=== PATIENT | male | born 1965 | race Caucasian/White ===

== ENCOUNTER 2018-07-26 09:32 | Emergency (ER) | payer MEDICAID ==
[~2018-07-26] VITALS: Ht 165.1 cm; Wt 106.0 kg
[~2018-07-26 09:32] MED LIST: ALLO100T PO; AMLO5TAB4 PO; ASPI-1159 PO; CITA20TA19 PO; FLUO20CA33 PO; METO-539 PO; QUET100T PO
[2018-07-26] MEDS ORDERED: KETOROLAC 60MG/2ML VIAL IM ONE (10:30)
[2018-07-26 10:55] VITALS: BP 149/105
== END 2018-07-26 11:00 | disposition home or self-care (01) ==
LOC: ER 09:32
DX: M10.9 Gout, unspecified (principal); I11.0 Hypertensive heart disease with heart failure; I50.9 Heart failure, unspecified; I48.91 Unspecified atrial fibrillation; F17.200 Nicotine dependence, unspecified, uncomplicated; Z79.82 Long term (current) use of aspirin; Z90.49 Acquired absence of other specified parts of digestive tract; Z79.01 Long term (current) use of anticoagulants
CPT/HCPCS: 96372; 99283; J1885

== ENCOUNTER 2018-12-01 11:48 | Emergency (ER) | payer MEDICAID ==
[~2018-12-01] VITALS: Ht 170.2 cm; Wt 109.0 kg
[2018-12-01 12:14] VITALS: BP 137/110
== END 2018-12-01 13:24 | disposition home or self-care (01) ==
LOC: ER 11:48
DX: M10.9 Gout, unspecified (principal); I48.91 Unspecified atrial fibrillation; I11.0 Hypertensive heart disease with heart failure; I50.9 Heart failure, unspecified; Z79.82 Long term (current) use of aspirin; Z98.890 Other specified postprocedural states
CPT/HCPCS: 99283

== ENCOUNTER 2019-01-09 04:28 | Emergency (ER) | payer MEDICAID ==
[~2019-01-09] VITALS: Ht 170.2 cm; Wt 114.0 kg
[2019-01-09] MEDS ORDERED: NITROGLYCERIN 0.4MG TABLET SL SL PRN (06:45)
[2019-01-09] MEDS ORDERED: ASPIRIN 81MG TABLET PO ONE (06:45)
[2019-01-09 07:13] LABS: BASOPHILS % 0.9 % (0.0-2.0); EOSINOPHILS % 1.8 % (0.0-5.0); HEMATOCRIT. 39.3 % (42.0-52.0); HEMOGLOBIN. 12.9 g/dL (14.0-18.0); LYMPHOCYTES % 21.4 % (20.0-50.0); MEAN CORPUSCULAR HEMOGLOBIN 30.5 pg (28.0-32.0); MEAN CORPUSCULAR VOLUME 93.1 fL (80.0-94.0); MEAN PLATELET VOLUME 8.3 fl (7.4-10.4); NEUTROPHILS % 67.9 % (40.0-76.0); PLATELET 147 x1000/uL (130-400); RED BLOOD CELL COUNT 4.22 mill/uL (4.7-6.1); RED CELL DISTRIBUTION WIDTH 16.4 % (11.6-14.6)
[2019-01-09 07:17] LABS: CHLORIDE 112 mEq/L (98-107)
[2019-01-09] MEDS ORDERED: FUROSEMIDE 40MG/4ML VIAL IV ONE (08:00)
[2019-01-09 09:52] VITALS: BP 152/97
== END 2019-01-09 09:52 | disposition left against medical advice (07) ==
LOC: ER 05:53 → CANBEDREQ 11:23
DX: I50.33 Acute on chronic diastolic (congestive) heart failure (principal); I20.0 Unstable angina
CPT/HCPCS: 36415; 71045; 80053; 83880; 84484; 85025; 93005; 96374; 99284; J1940

== ENCOUNTER 2019-03-17 12:10 | Emergency (ER) | payer MEDICAID ==
[~2019-03-17] VITALS: Ht 170.2 cm; Wt 125.0 kg
[~2019-03-17 12:10] MED LIST changes: -ASPI-1159 PO; +ASPI-1393 PO
[2019-03-17 16:00] VITALS: BP 131/91
== END 2019-03-17 16:00 | disposition home or self-care (01) ==
LOC: ER 12:10
DX: M10.9 Gout, unspecified (principal); I48.91 Unspecified atrial fibrillation; I50.9 Heart failure, unspecified; R06.2 Wheezing; Z79.82 Long term (current) use of aspirin; Z79.899 Other long term (current) drug therapy
CPT/HCPCS: 99283

== ENCOUNTER 2019-05-31 09:41 | Emergency (ER) | payer MEDICAID ==
[~2019-05-31] VITALS: Ht 170.2 cm; Wt 108.0 kg
[2019-05-31 11:18] VITALS: BP 140/99
== END 2019-05-31 11:19 | disposition home or self-care (01) ==
LOC: ER 09:41
DX: M10.9 Gout, unspecified (principal); M25.571 Pain in right ankle and joints of right foot; I11.0 Hypertensive heart disease with heart failure; I50.9 Heart failure, unspecified; I48.91 Unspecified atrial fibrillation; Z79.899 Other long term (current) drug therapy; Z98.890 Other specified postprocedural states
CPT/HCPCS: 99283

== ENCOUNTER 2019-07-28 00:21 | Inpatient (IN) | payer MEDICAID ==
[~2019-07-28] VITALS: Ht 170.2 cm; Wt 112.9 kg
[2019-07-28] MEDS ORDERED: IPRATROPIUM BROMIDE (0.02%) 0.5MG/2.5ML NEB HHN STA (00:45)
[2019-07-28] MEDS ORDERED: MAGNESIUM 2 G PREMIX 50 ML IV ONE (00:45)
[2019-07-28] MEDS ORDERED: METHYLPREDNISOLONE SOD SUCC 125 MG/2 ML VIAL IV STA (00:45)
[2019-07-28] MEDS ORDERED: FUROSEMIDE 40MG/4ML VIAL IV ONE (00:45)
[2019-07-28 01:35] LABS: CHLORIDE 108 mEq/L (98-107)
[2019-07-28] MEDS ORDERED: IPRATROPIUM/ALBUTEROL 0.5-3(2.5)MG/3ML NEB ONE ×2 (02:32→03:48)
[2019-07-28] MEDS: ALBUTEROL (0.083%) 2.5MG/3ML NEB HHN SCH ×3 (02:35→03:35)
[2019-07-28 02:50] LABS: BASOPHILS % 0.5 % (0.0-2.0); EOSINOPHILS % 1.4 % (0.0-5.0); HEMATOCRIT. 51.9 % (42.0-52.0); HEMOGLOBIN. 17.4 g/dL (14.0-18.0); MEAN CORPUSCULAR HEMOGLOBIN 31.7 pg (28.0-32.0); MEAN CORPUSCULAR VOLUME 94.7 fL (80.0-94.0); MEAN PLATELET VOLUME 9.5 fl (7.4-10.4); MONOCYTES % 6.9 % (2.0-8.0); NEUTROPHILS % 77.2 % (40.0-76.0); PLATELET 252 x1000/uL (130-400); RED BLOOD CELL COUNT 5.48 mill/uL (4.7-6.1); RED CELL DISTRIBUTION WIDTH 14.8 % (11.6-14.6)
[2019-07-28] MEDS ORDERED: LEVOFLOXACIN 750MG PREMIX 150 ML IV SCH (03:30)
[2019-07-28] MEDS ORDERED: PIPERACILLIN/TAZOBACTAM 3.375GM/50ML PREMIX IV SCH (05:15)
[2019-07-28] MEDS ORDERED: VANCOMYCIN 1 G PREMIX 200 ML IV SCH (05:15)
[2019-07-28] MEDS ORDERED: DIPHENHYDRAMINE 50MG/ML VIAL IV ONE (05:15)
[2019-07-28] MEDS ORDERED: BUSPIRONE HCL 5MG TABLET PO PRN (12:15)
[2019-07-28 13:00] VITALS: BP 168/93
[2019-07-28 13:21] VITALS: BP 143/87
[2019-07-28] MEDS: METHYLPREDNISOLONE SOD SUCC 40 MG/ML VIAL IV SCH ×2 (13:41→21:12)
[2019-07-28] MEDS: QUETIAPINE FUMARATE 50MG TABLET PO SCH ×2 (13:48→21:14)
[2019-07-28] MEDS: ASPIRIN 81MG TABLET PO SCH (13:49)
[2019-07-28] MEDS: FUROSEMIDE 40MG TABLET PO SCH (14:10)
[2019-07-28 16:00] VITALS: BP 134/74
[2019-07-28] MEDS ORDERED: IPRATROPIUM BROMIDE (0.02%) 0.5MG/2.5ML NEB HHN SCH (16:00)
[2019-07-28] MEDS: RIVAROXABAN 20 MG TABLET PO SCH (17:13)
[2019-07-28] MEDS ORDERED: IPRATROPIUM/ALBUTEROL 0.5-3(2.5)MG/3ML NEB HHN PRN (19:30)
[2019-07-28 20:00] VITALS: BP 121/82
[2019-07-28] MEDS: IPRATROPIUM/ALBUTEROL 0.5-3(2.5)MG/3ML NEB HHN SCH (21:45)
[2019-07-29] VITALS (7 sets, daily range): BP systolic 125–145; BP diastolic 70–100
[2019-07-29] MEDS: METHYLPREDNISOLONE SOD SUCC 40 MG/ML VIAL IV SCH ×2 (06:53→13:31)
[2019-07-29 07:28] LABS: HEMATOCRIT. 48.8 % (42.0-52.0); HEMOGLOBIN. 16.7 g/dL (14.0-18.0); MEAN CORPUSCULAR VOLUME 93.3 fL (80.0-94.0); MEAN PLATELET VOLUME 8.6 fl (7.4-10.4); PLATELET 213 x1000/uL (130-400); RED BLOOD CELL COUNT 5.23 mill/uL (4.7-6.1); RED CELL DISTRIBUTION WIDTH 14.8 % (11.6-14.6)
[2019-07-29] MEDS: IPRATROPIUM/ALBUTEROL 0.5-3(2.5)MG/3ML NEB HHN SCH ×3 (08:10→21:55)
[2019-07-29] MEDS: ASPIRIN 81MG TABLET PO SCH (08:55)
[2019-07-29] MEDS: QUETIAPINE FUMARATE 50MG TABLET PO SCH ×2 (08:55→22:07)
[2019-07-29] MEDS: FUROSEMIDE 40MG TABLET PO SCH (08:55)
[2019-07-29 09:26] LABS: PLATELET ESTIMATE NORMAL
[2019-07-29 09:35] LABS: CHLORIDE 109 mEq/L (98-107)
[2019-07-29] MEDS ORDERED: GUAIFENESIN-DM 200MG-20MG/10ML UDC PO PRN (11:45)
[2019-07-29] MEDS: RIVAROXABAN 20 MG TABLET PO SCH (19:01)
[2019-07-29] MEDS: METOPROLOL TARTRATE 25MG TABLET PO SCH ×2 (19:02→22:06)
[2019-07-29] MEDS: PREDNISONE 20MG TABLET PO SCH (19:03)
[2019-07-29] MEDS ORDERED: ATORVASTATIN CALCIUM 40MG TABLET PO SCH (21:00)
[2019-07-29] MEDS: GUAIFENESIN 600MG ER TABLET PO SCH (22:07)
[2019-07-30] VITALS: BP 141/70
[2019-07-30 04:00] VITALS: BP 139/66
[2019-07-30 08:00] VITALS: BP 126/82
[2019-07-30] MEDS: IPRATROPIUM/ALBUTEROL 0.5-3(2.5)MG/3ML NEB HHN SCH ×2 (08:22→14:33)
[2019-07-30] MEDS: GUAIFENESIN 600MG ER TABLET PO SCH (09:00)
[2019-07-30] MEDS: ASPIRIN 81MG TABLET PO SCH (09:43)
[2019-07-30] MEDS: FUROSEMIDE 40MG TABLET PO SCH (09:43)
[2019-07-30] MEDS: QUETIAPINE FUMARATE 50MG TABLET PO SCH (09:43)
[2019-07-30] MEDS: PREDNISONE 20MG TABLET PO SCH (09:43)
[2019-07-30] MEDS: METOPROLOL TARTRATE 25MG TABLET PO SCH (09:48)
[2019-07-30 12:00] VITALS: BP 145/88
[2019-07-30] MEDS ORDERED: INDOMETHACIN 25MG CAPSULE PO SCH (14:45)
[2019-07-30 15:31] VITALS: BP 129/60
[2019-07-30 16:07] LABS: CLARITY URINE CLEAR (CLEAR); COLOR URINE YELLOW (YELLOW); KETONES URINE NEGATIVE (NEGATIVE); LEUKOCYTE ESTERASE URINE NEGATIVE (NEGATIVE); NITRITE URINE NEGATIVE (NEGATIVE); OCCULT BLOOD URINE NEGATIVE (NEGATIVE); PROTEIN URINE 1+ (NEGATIVE); SPECIFIC GRAVITY URINE 1.012 (1.005-1.030); UROBILINOGEN URINE 0.2 E.U./dL (0.2-1.0)
[2019-07-30 16:22] LABS: *AMPHETAMINES SCREEN URINE NEGATIVE (NEGATIVE); CANNABINOID URINE SCREEN PRESUMTIVE POSITIVE (NEGATIVE); OPIATES URINE SCREEN NEGATIVE (NEGATIVE); PHENCYCLIDINE URINE SCREEN NEGATIVE (NEGATIVE)
[2019-07-30 16:23] LABS: *BARBITURATES SCREEN URINE NEGATIVE (NEGATIVE); *BENZODIAZEPINES SCREEN URINE NEGATIVE (NEGATIVE); *COCAINE SCREEN URINE NEGATIVE (NEGATIVE); METHADONE URINE SCREEN NEGATIVE (NEGATIVE)
[2019-08-01 17:06] LABS: ANA IFA Negative (.)
[2019-08-02 13:06] LABS: ANTI-MYELOPEROXIDASE AB < 9.0 U/mL (0.0-9.0); ANTI-PROTEINASE 3 ABS < 3.5 U/mL (0.0-3.5)
[2019-08-02 15:09] LABS: ATYPICAL P-ANCA <1:20 titer (Neg:<1:20); CYTOPLASMIC C-ANCA <1:20 titer (Neg:<1:20); PERINUCLEAR P-ANCA <1:20 titer (Neg:<1:20)
== END 2019-07-30 16:07 | disposition home or self-care (01) | DRG 133 ==
LOC: ER 00:21 → 7WST 03:28 → EDBEDREQ 03:35 → EDBEDREQTM 03:35 → EDBEDREQ 08:56 → ENRESERV 10:40
PROVIDERS: ADMIT Internal Medicine; ATTEND Internal Medicine
DX: J96.00 Acute respiratory failure, unspecified whether with hypoxia or hypercapnia (principal); I50.43 Acute on chronic combined systolic (congestive) and diastolic (congestive) heart failure; I42.9 Cardiomyopathy, unspecified; E87.8 Other disorders of electrolyte and fluid balance, not elsewhere classified; E66.9 Obesity, unspecified; I48.0 Paroxysmal atrial fibrillation; I11.0 Hypertensive heart disease with heart failure; E78.5 Hyperlipidemia, unspecified; F17.200 Nicotine dependence, unspecified, uncomplicated; F41.9 Anxiety disorder, unspecified; G89.4 Chronic pain syndrome; J44.1 Chronic obstructive pulmonary disease with (acute) exacerbation; M10.9 Gout, unspecified; I50.82 Biventricular heart failure; Z79.01 Long term (current) use of anticoagulants; F31.9 Bipolar disorder, unspecified; Z68.39 Body mass index [BMI] 39.0-39.9, adult
CPT/HCPCS: 36415; 71045; 80048; 80061; 80305; 81003; 83036; 83520; 83880; 84145; 84443; 84484; 84550; 86140; 86256; 93005; 93306; 94640; 96365; 99285; J1200; J1940; J1956; J2543; J2920; J2930; J3370; J3475; J7512; J7620

== ENCOUNTER 2019-10-10 13:21 | Emergency (ER) | payer MEDICAID ==
[~2019-10-10] VITALS: Ht 170.2 cm; Wt 113.0 kg
[~2019-10-10 13:21] MED LIST changes: -ASPI-1393 PO; +ASPI-1497 PO
[2019-10-10] MEDS ORDERED: HYDROCODONE/ACETAMINOPHEN 5/325MG TABLET PO ONE (16:15)
[2019-10-10] MEDS ORDERED: KETOROLAC 60MG/2ML VIAL IM ONE (16:15)
[2019-10-10 16:34] VITALS: BP 162/116
== END 2019-10-10 16:39 | disposition home or self-care (01) ==
LOC: ER 13:21
DX: M10.9 Gout, unspecified (principal); I11.0 Hypertensive heart disease with heart failure; I50.9 Heart failure, unspecified; I48.91 Unspecified atrial fibrillation; Z79.01 Long term (current) use of anticoagulants
CPT/HCPCS: 96372; 99283; J1885

== ENCOUNTER 2019-11-03 13:40 | Emergency (ER) | payer MEDICAID ==
[~2019-11-03] VITALS: Ht 170.2 cm; Wt 125.0 kg
[2019-11-03 13:53] VITALS: BP 145/90
[2019-11-03] MEDS ORDERED: IBUPROFEN 600MG TABLET PO ONE (15:15)
== END 2019-11-03 15:27 | disposition home or self-care (01) ==
LOC: ER 13:40
DX: M10.9 Gout, unspecified (principal); Z76.0 Encounter for issue of repeat prescription; I48.91 Unspecified atrial fibrillation; I50.9 Heart failure, unspecified; Z79.82 Long term (current) use of aspirin
CPT/HCPCS: 99283

== ENCOUNTER 2020-01-30 11:49 | Inpatient (IN) | payer MEDICARE, MEDICAID ==
[2020-01-30] VITALS (33 sets, daily range): BP systolic 91–167; BP diastolic 54–129
[~2020-01-30] VITALS: Ht 165.1 cm; Wt 122.5 kg
[2020-01-30] MEDS ORDERED: SODIUM CHLORIDE 0.9% 1,000 ML IV ONE (11:59)
[2020-01-30] MEDS ORDERED: LEVETIRACETAM 1000MG/100ML 100 ML IV ONE (12:15)
[2020-01-30] MEDS ORDERED: SODIUM CHLORIDE 3% 250 ML IV SCH (12:30)
[2020-01-30] MEDS ORDERED: IOHEXOL-350 100 ML BOTTLE ONE (12:42)
[2020-01-30 12:54] LABS: BASOPHILS % 0.5 % (0.0-2.0); EOSINOPHILS % 0.2 % (0.0-5.0); HEMATOCRIT. 51.4 % (42.0-52.0); HEMOGLOBIN. 17.3 g/dL (14.0-18.0); LYMPHOCYTES % 7.3 % (20.0-50.0); MEAN CORPUSCULAR HEMOGLOBIN 31.3 pg (28.0-32.0); MEAN CORPUSCULAR VOLUME 93.3 fL (80.0-94.0); MEAN PLATELET VOLUME 8.5 fl (7.4-10.4); MONOCYTES % 9.3 % (2.0-8.0); NEUTROPHILS % 82.7 % (40.0-76.0); PLATELET 212 x1000/uL (130-400); RED BLOOD CELL COUNT 5.52 mill/uL (4.7-6.1); RED CELL DISTRIBUTION WIDTH 16.3 % (11.6-14.6)
[2020-01-30 12:59] LABS: CHLORIDE 110 mEq/L (98-107); INR 1.2
[2020-01-30] MEDS ORDERED: MANNITOL 12.5G (25%) VIAL 50ML IV ONE (13:00)
[2020-01-30] MEDS ORDERED: DEXAMETHASONE 10 MG/ML VIAL IV ONE (13:00)
[2020-01-30 13:03] LABS: ETHANOL BLOOD < 10 mg/dL
[2020-01-30 13:06] LABS: LDL CHOLESTEROL 199 mg/dL (5-100)
[2020-01-30] MEDS ORDERED: NORMAL SALINE 0.9% 10 ML SYR ONE (13:16)
[2020-01-30] MEDS ORDERED: LIDOCAINE HCL/EPINEPHRINE 1%-EPI 1:100,000 20 ML VIAL ONE ×2 (13:16→14:34)
[2020-01-30] MEDS ORDERED: BACITRACIN 15GM TUBE TOP ONE (13:16)
[2020-01-30] MEDS ORDERED: BACITRACIN 50,000 UNITS/VIAL ONE (13:16)
[2020-01-30] MEDS ORDERED: THROMBIN (BOVINE) 5000 UNITS/VIAL TOP ONE (13:16)
[2020-01-30 13:17] LABS: CLARITY URINE CLEAR (CLEAR); COLOR URINE DARK YELLOW (YELLOW); KETONES URINE 1+ (NEGATIVE); LEUKOCYTE ESTERASE URINE NEGATIVE (NEGATIVE); NITRITE URINE NEGATIVE (NEGATIVE); OCCULT BLOOD URINE 3+ (NEGATIVE); PROTEIN URINE 4+ (NEGATIVE); SPECIFIC GRAVITY URINE 1.058 (1.005-1.030)
[2020-01-30 13:18] LABS: CREATINE KINASE 1466 IU/L (39-308)
[2020-01-30] MEDS ORDERED: FENTANYL CITRATE/PF 50MCG/ML 2ML VIAL ONE (13:27)
[2020-01-30] MEDS ORDERED: PROPOFOL 200MG/20ML VIAL IV ONE (13:27)
[2020-01-30] MEDS ORDERED: MIDAZOLAM HCL 2 MG/2 ML VIAL ONE (13:27)
[2020-01-30] MEDS ORDERED: ROCURONIUM BROMIDE 10MG/ML VIAL 5ML IV ONE ×2 (13:27→14:42)
[2020-01-30] MEDS ORDERED: CEFAZOLIN SODIUM 1000MG/VIAL ONE (13:28)
[2020-01-30] MEDS ORDERED: LIDOCAINE HCL/PF 1% 10 MG/ML 5ML VIAL ONE (13:28)
[2020-01-30] MEDS ORDERED: DILTIAZEM HCL 5MG/ML 5ML VIAL IV ONE (13:30)
[2020-01-30] MEDS ORDERED: SODIUM CHLORIDE 0.9% 10ML VIAL ONE (13:35)
[2020-01-30] MEDS ORDERED: MORPHINE SULFATE 2 MG/ML CPJ (NOT FOR IM USE) IV PRN (13:45)
[2020-01-30 13:48] LABS: *AMPHETAMINES SCREEN URINE NEGATIVE (NEGATIVE); *BARBITURATES SCREEN URINE NEGATIVE (NEGATIVE); *BENZODIAZEPINES SCREEN URINE NEGATIVE (NEGATIVE); *COCAINE SCREEN URINE NEGATIVE (NEGATIVE); CANNABINOID URINE SCREEN PRESUMTIVE POSITIVE (NEGATIVE)
[2020-01-30 13:49] LABS: METHADONE URINE SCREEN NEGATIVE (NEGATIVE); OPIATES URINE SCREEN NEGATIVE (NEGATIVE); PHENCYCLIDINE URINE SCREEN NEGATIVE (NEGATIVE)
[2020-01-30] MEDS: LABETALOL 5MG/ML SYR 20 MG/4 ML SYRINGE IV SCH ×2 (16:24→16:41)
[2020-01-30] MEDS: DEXT 5%/LACTATED RINGERS 1,000 ML IV SCH (16:51)
[2020-01-30] MEDS ORDERED: LEVETIRACETAM 500MG PREMIX 100 ML IV SCH (17:00)
[2020-01-30] MEDS ORDERED: DILTIAZEM HCL 5MG/ML 5ML VIAL IV NR (17:15)
[2020-01-30] MEDS: PROPOFOL 10MG/ML 100ML 100 ML IV PRN ×2 (17:29→21:01)
[2020-01-30] MEDS: NICARDIPINE 100 MG in SODIUM CHLORIDE 0.9% 60 ML IV PRN (17:34)
[2020-01-30] MEDS: DEXAMETHASONE 4MG/ML 1ML VIAL IV SCH (17:49)
[2020-01-30] MEDS ORDERED: CEFAZOLIN 1000MG PREMIX 50 ML IV SCH (18:00)
[2020-01-30] MEDS ORDERED: LABETALOL HCL 20MG/4ML CARPUJECT IV SCH (18:00)
[2020-01-30 18:52] LABS: BG BASE EXCESS -5.3 mmol/L (-2.0-2.0); BG CARBOXYHEMOGLOBIN 0.6 % (0.5-1.5); BG DEOXYHEMOGLOBIN 0.8 % (0.0-5.0); BG FRACTION INSPIRED OXYGEN 100; BG HCO3 ACT 20.6 mmol/L (22.0-26.0); BG METHEMOGLOBIN 0.5 % (0.0-1.5); BG OXYGEN SATURATION 99.2 % (92.0-98.5); BG OXYHEMOGLOBIN 98.1 % (94.0-97.0); BG PCO2 41.3 mmHg (35.0-45.0); BG PH 7.315 (7.350-7.450); BG PO2 189.8 mmHg (75.0-100.0); BG SAMPLE SITE RIGHT RADIAL; BG TIDAL VOLUME(mL) 500 mL; BG TOTAL HEMOGLOBIN 16.4 g/dL (12.0-18.0); BG VENT MODE VENT - A/C; BG VENT RATE 14 set
[2020-01-30] MEDS: LEVETIRACETAM 500MG PREMIX 100 ML IV SCH (20:55)
[2020-01-30] MEDS: CEFAZOLIN 1000MG PREMIX 50 ML IV SCH (21:55)
[2020-01-31] VITALS (95 sets, daily range): BP systolic 103–155; BP diastolic 53–105
[2020-01-31] MEDS: DEXAMETHASONE 4MG/ML 1ML VIAL IV SCH ×5 (00:39→23:19)
[2020-01-31] MEDS: PROPOFOL 10MG/ML 100ML 100 ML IV PRN ×6 (01:02→20:11)
[2020-01-31] MEDS: CEFAZOLIN 1000MG PREMIX 50 ML IV SCH ×3 (06:37→21:17)
[2020-01-31] MEDS: PANTOPRAZOLE SODIUM 40 MG/VIAL IV SCH (09:08)
[2020-01-31] MEDS: LEVETIRACETAM 500MG PREMIX 100 ML IV SCH ×2 (09:10→20:06)
[2020-01-31 11:27] LABS: BG BASE EXCESS 1.1 mmol/L (-2.0-2.0); BG CARBOXYHEMOGLOBIN 0.5 % (0.5-1.5); BG DEOXYHEMOGLOBIN 2.4 % (0.0-5.0); BG FRACTION INSPIRED OXYGEN 65; BG HCO3 ACT 26.3 mmol/L (22.0-26.0); BG METHEMOGLOBIN 0.4 % (0.0-1.5); BG OXYGEN SATURATION 97.6 % (92.0-98.5); BG OXYHEMOGLOBIN 96.7 % (94.0-97.0); BG PCO2 43.9 mmHg (35.0-45.0); BG PH 7.396 (7.350-7.450); BG PO2 97.6 mmHg (75.0-100.0); BG SAMPLE SITE RIGHT RADIAL; BG TIDAL VOLUME(mL) 500 mL; BG VENT MODE VENT - A/C; BG VENT RATE 18 set
[2020-01-31] MEDS: MORPHINE SULFATE 4 MG/ML CPJ (NOT FOR IM USE) IV PRN ×2 (12:04→15:47)
[2020-01-31] MEDS: DILTIAZEM HCL 125 MG in DEXT 5% WATER 100 ML IV PRN ×2 (12:08→23:25)
[2020-01-31] MEDS: DEXT 5%/LACTATED RINGERS 1,000 ML IV SCH (12:09)
[2020-01-31 12:39] LABS: HEMOGLOBIN. 15.7 g/dL (14.0-18.0); MEAN CORPUSCULAR HEMOGLOBIN 30.8 pg (28.0-32.0); MEAN CORPUSCULAR VOLUME 94.2 fL (80.0-94.0); MEAN PLATELET VOLUME 8.3 fl (7.4-10.4); PLATELET 176 x1000/uL (130-400); RED CELL DISTRIBUTION WIDTH 16.4 % (11.6-14.6)
[2020-01-31 13:15] LABS: CHLORIDE 116 mEq/L (98-107)
[2020-01-31 13:27] LABS: PLATELET ESTIMATE NORMAL
[2020-01-31] MEDS ORDERED: HYDRALAZINE 20MG/ML VIAL IV PRN (15:45)
[2020-01-31] MEDS ORDERED: ACETAMINOPHEN 650MG SUPP PR PRN (15:45)
[2020-02-01] VITALS (98 sets, daily range): BP systolic 92–173; BP diastolic 41–114
[2020-02-01] MEDS: PROPOFOL 10MG/ML 100ML 100 ML IV PRN ×5 (00:29→19:11)
[2020-02-01] MEDS: CEFAZOLIN 1000MG PREMIX 50 ML IV SCH (05:23)
[2020-02-01] MEDS: DEXAMETHASONE 4MG/ML 1ML VIAL IV SCH ×3 (05:23→17:04)
[2020-02-01 07:33] LABS: HEMATOCRIT. 44.2 % (42.0-52.0); HEMOGLOBIN. 14.9 g/dL (14.0-18.0); MEAN CORPUSCULAR HEMOGLOBIN 31.6 pg (28.0-32.0); MEAN CORPUSCULAR VOLUME 93.6 fL (80.0-94.0); MEAN PLATELET VOLUME 8.9 fl (7.4-10.4); PLATELET 148 x1000/uL (130-400); RED BLOOD CELL COUNT 4.72 mill/uL (4.7-6.1)
[2020-02-01 07:39] LABS: CHLORIDE 116 mEq/L (98-107)
[2020-02-01 08:50] LABS: ATYPICAL LYMPHOCYTES 1; PLATELET ESTIMATE NORMAL
[2020-02-01] MEDS: LEVETIRACETAM 500MG PREMIX 100 ML IV SCH ×2 (08:50→21:14)
[2020-02-01] MEDS: PANTOPRAZOLE SODIUM 40 MG/VIAL IV SCH (08:50)
[2020-02-01] MEDS: MORPHINE SULFATE 4 MG/ML CPJ (NOT FOR IM USE) IV PRN (08:52)
[2020-02-01 09:07] LABS: BG BASE EXCESS 1.9 mmol/L (-2.0-2.0); BG CARBOXYHEMOGLOBIN 0.3 % (0.5-1.5); BG DEOXYHEMOGLOBIN 3.3 % (0.0-5.0); BG FRACTION INSPIRED OXYGEN 65; BG HCO3 ACT 26.3 mmol/L (22.0-26.0); BG METHEMOGLOBIN 0.3 % (0.0-1.5); BG OXYGEN SATURATION 96.7 % (92.0-98.5); BG OXYHEMOGLOBIN 96.1 % (94.0-97.0); BG PCO2 40.5 mmHg (35.0-45.0); BG PH 7.431 (7.350-7.450); BG PO2 89.4 mmHg (75.0-100.0); BG SAMPLE SITE RIGHT RADIAL; BG TIDAL VOLUME(mL) 500 mL; BG TOTAL HEMOGLOBIN 15.7 g/dL (12.0-18.0); BG VENT MODE VENT - A/C; BG VENT RATE 18 set
[2020-02-01] MEDS: DEXT 5%/LACTATED RINGERS 1,000 ML IV SCH (12:27)
[2020-02-01] MEDS: PIPERACILLIN/TAZOBACTAM 3.375 G in DEXT 5% WATER 100 ML IV SCH ×2 (14:00→20:27)
[2020-02-01] MEDS: NICARDIPINE 100 MG in SODIUM CHLORIDE 0.9% 60 ML IV PRN (23:27)
[2020-02-02] VITALS (61 sets, daily range): BP systolic 102–159; BP diastolic 55–92
[2020-02-02] MEDS: DEXAMETHASONE 4MG/ML 1ML VIAL IV SCH ×4 (00:30→17:57)
[2020-02-02] MEDS: MORPHINE SULFATE 4 MG/ML CPJ (NOT FOR IM USE) IV PRN ×4 (01:38→16:41)
[2020-02-02] MEDS: PIPERACILLIN/TAZOBACTAM 3.375 G in DEXT 5% WATER 100 ML IV SCH ×4 (01:39→20:16)
[2020-02-02] MEDS: PROPOFOL 10MG/ML 100ML 100 ML IV PRN ×3 (01:50→17:08)
[2020-02-02 05:02] LABS: CHLORIDE 115 mEq/L (98-107)
[2020-02-02 05:25] LABS: HEMATOCRIT. 45.5 % (42.0-52.0); HEMOGLOBIN. 15.2 g/dL (14.0-18.0); MEAN CORPUSCULAR HEMOGLOBIN 31.3 pg (28.0-32.0); MEAN CORPUSCULAR VOLUME 93.3 fL (80.0-94.0); MEAN PLATELET VOLUME 8.5 fl (7.4-10.4); PLATELET 132 x1000/uL (130-400); RED BLOOD CELL COUNT 4.87 mill/uL (4.7-6.1); RED CELL DISTRIBUTION WIDTH 15.7 % (11.6-14.6)
[2020-02-02] MEDS: DEXT 5%/LACTATED RINGERS 1,000 ML IV SCH (05:43)
[2020-02-02] MEDS: NICARDIPINE 100 MG in SODIUM CHLORIDE 0.9% 60 ML IV PRN ×2 (06:09→18:33)
[2020-02-02 08:09] LABS: BG BASE EXCESS 6.7 mmol/L (-2.0-2.0); BG CARBOXYHEMOGLOBIN 0.3 % (0.5-1.5); BG DEOXYHEMOGLOBIN 1.5 % (0.0-5.0); BG FRACTION INSPIRED OXYGEN 65; BG HCO3 ACT 31.4 mmol/L (22.0-26.0); BG METHEMOGLOBIN 0.2 % (0.0-1.5); BG OXYGEN SATURATION 98.5 % (92.0-98.5); BG PCO2 44.7 mmHg (35.0-45.0); BG PH 7.464 (7.350-7.450); BG PO2 123.4 mmHg (75.0-100.0); BG SAMPLE SITE RIGHT RADIAL; BG TIDAL VOLUME(mL) 500 mL; BG TOTAL HEMOGLOBIN 15.2 g/dL (12.0-18.0); BG VENT MODE VENT - A/C; BG VENT RATE 18 set
[2020-02-02] MEDS: PANTOPRAZOLE SODIUM 40 MG/VIAL IV SCH (08:59)
[2020-02-02] MEDS: LEVETIRACETAM 500MG PREMIX 100 ML IV SCH ×2 (09:00→21:23)
[2020-02-02 09:03] LABS: PLATELET ESTIMATE NORMAL
[2020-02-02] MEDS: LORAZEPAM 2MG/ML CPJ IV PRN (13:14)
[2020-02-02] MEDS: AMLODIPINE 5MG TABLET PO SCH (17:57)
[2020-02-03] VITALS (97 sets, daily range): BP systolic 108–179; BP diastolic 43–120
[2020-02-03] MEDS: DEXT 5%/LACTATED RINGERS 1,000 ML IV SCH ×2 (00:09→21:07)
[2020-02-03] MEDS: DEXAMETHASONE 4MG/ML 1ML VIAL IV SCH ×5 (00:10→23:08)
[2020-02-03] MEDS: PIPERACILLIN/TAZOBACTAM 3.375 G in DEXT 5% WATER 100 ML IV SCH ×4 (02:03→20:04)
[2020-02-03] MEDS: LORAZEPAM 2MG/ML CPJ IV PRN (02:03)
[2020-02-03] MEDS: MORPHINE SULFATE 4 MG/ML CPJ (NOT FOR IM USE) IV PRN ×2 (02:03→06:13)
[2020-02-03] MEDS: PROPOFOL 10MG/ML 100ML 100 ML IV PRN ×3 (06:09→21:08)
[2020-02-03 07:15] LABS: HEMATOCRIT 43.8 % (42.0-52.0); HEMOGLOBIN 14.6 g/dL (14.0-18.0); MEAN CORPUSCULAR HEMOGLOBIN 31.4 pg (28.0-32.0); MEAN CORPUSCULAR VOLUME 94.3 fL (80.0-94.0); PLATELET 129 x1000/uL (130-400); RED BLOOD CELL COUNT 4.64 mill/uL (4.7-6.1); RED CELL DISTRIBUTION WIDTH 15.2 % (11.6-14.6)
[2020-02-03 07:28] LABS: CHLORIDE 115 mEq/L (98-107)
[2020-02-03] MEDS: LEVETIRACETAM 500MG PREMIX 100 ML IV SCH ×2 (08:22→21:08)
[2020-02-03] MEDS: PANTOPRAZOLE SODIUM 40 MG/VIAL IV SCH (08:23)
[2020-02-03] MEDS: AMLODIPINE 5MG TABLET PO SCH (08:24)
[2020-02-03 09:08] LABS: BG BASE EXCESS 5.3 mmol/L (-2.0-2.0); BG CARBOXYHEMOGLOBIN 0.4 % (0.5-1.5); BG FRACTION INSPIRED OXYGEN 55; BG HCO3 ACT 30.2 mmol/L (22.0-26.0); BG METHEMOGLOBIN 0.3 % (0.0-1.5); BG OXYHEMOGLOBIN 98.3 % (94.0-97.0); BG PH 7.444 (7.350-7.450); BG PO2 172.3 mmHg (75.0-100.0); BG SAMPLE SITE RIGHT RADIAL; BG TIDAL VOLUME(mL) 500 mL; BG TOTAL HEMOGLOBIN 14.5 g/dL (12.0-18.0); BG VENT MODE VENT - A/C; BG VENT RATE 18 set
[2020-02-03] MEDS ORDERED: DOCUSATE SODIUM SUGAR FREE 100MG/10ML UDC NG NR (11:12)
[2020-02-03] MEDS ORDERED: LORAZEPAM 2MG/ML CPJ IV PRN (20:30)
[2020-02-03] MEDS: NICARDIPINE 100 MG in SODIUM CHLORIDE 0.9% 60 ML IV PRN (23:08)
[2020-02-04] VITALS (96 sets, daily range): BP systolic 103–173; BP diastolic 60–100
[2020-02-04] MEDS: PIPERACILLIN/TAZOBACTAM 3.375 G in DEXT 5% WATER 100 ML IV SCH ×4 (01:12→19:40)
[2020-02-04] MEDS: PROPOFOL 10MG/ML 100ML 100 ML IV PRN ×2 (04:19→19:37)
[2020-02-04] MEDS: DEXAMETHASONE 4MG/ML 1ML VIAL IV SCH ×4 (05:22→23:42)
[2020-02-04 06:24] LABS: HEMATOCRIT 43.9 % (42.0-52.0); HEMOGLOBIN 14.8 g/dL (14.0-18.0); MEAN CORPUSCULAR HEMOGLOBIN 31.4 pg (28.0-32.0); MEAN CORPUSCULAR VOLUME 92.9 fL (80.0-94.0); PLATELET 123 x1000/uL (130-400); RED BLOOD CELL COUNT 4.73 mill/uL (4.7-6.1); RED CELL DISTRIBUTION WIDTH 15.5 % (11.6-14.6)
[2020-02-04 06:30] LABS: CHLORIDE 114 mEq/L (98-107)
[2020-02-04 09:13] LABS: BG BASE EXCESS 3.8 mmol/L (-2.0-2.0); BG CARBOXYHEMOGLOBIN 0.1 % (0.5-1.5); BG DEOXYHEMOGLOBIN 1.7 % (0.0-5.0); BG FRACTION INSPIRED OXYGEN 40; BG HCO3 ACT 27.1 mmol/L (22.0-26.0); BG METHEMOGLOBIN 0.4 % (0.0-1.5); BG OXYGEN SATURATION 98.3 % (92.0-98.5); BG OXYHEMOGLOBIN 97.8 % (94.0-97.0); BG PH 7.483 (7.350-7.450); BG PO2 126.3 mmHg (75.0-100.0); BG SAMPLE SITE RIGHT RADIAL; BG TIDAL VOLUME(mL) 450 mL; BG TOTAL HEMOGLOBIN 15.2 g/dL (12.0-18.0); BG VENT MODE VENT - A/C; BG VENT RATE 18 set
[2020-02-04] MEDS: PANTOPRAZOLE SODIUM 40 MG/VIAL IV SCH (09:27)
[2020-02-04] MEDS: LEVETIRACETAM 500MG PREMIX 100 ML IV SCH ×2 (09:27→20:27)
[2020-02-04] MEDS: AMLODIPINE 5MG TABLET PO SCH ×2 (09:28→18:01)
[2020-02-04] MEDS: DOCUSATE SODIUM SUGAR FREE 100MG/10ML UDC NG SCH (09:28)
[2020-02-04] MEDS: LOSARTAN POTASSIUM 100 MG TABLET PO SCH (12:16)
[2020-02-04] MEDS: METOPROLOL TARTRATE 25MG TABLET PO SCH ×2 (12:17→20:27)
[2020-02-04] MEDS: NICARDIPINE 100 MG in SODIUM CHLORIDE 0.9% 60 ML IV PRN (13:30)
[2020-02-05] VITALS (93 sets, daily range): BP systolic 111–146; BP diastolic 57–103
[2020-02-05] MEDS: PIPERACILLIN/TAZOBACTAM 3.375 G in DEXT 5% WATER 100 ML IV SCH ×4 (01:08→19:58)
[2020-02-05] MEDS: PROPOFOL 10MG/ML 100ML 100 ML IV PRN ×4 (01:42→20:41)
[2020-02-05] MEDS: DEXAMETHASONE 4MG/ML 1ML VIAL IV SCH ×4 (05:02→23:15)
[2020-02-05 06:10] LABS: HEMATOCRIT. 43.7 % (42.0-52.0); MEAN CORPUSCULAR HEMOGLOBIN 31.7 pg (28.0-32.0); MEAN CORPUSCULAR VOLUME 91.9 fL (80.0-94.0); PLATELET 118 x1000/uL (130-400); RED BLOOD CELL COUNT 4.75 mill/uL (4.7-6.1); RED CELL DISTRIBUTION WIDTH 14.9 % (11.6-14.6)
[2020-02-05 06:25] LABS: CHLORIDE 111 mEq/L (98-107)
[2020-02-05] MEDS: DOCUSATE SODIUM SUGAR FREE 100MG/10ML UDC NG SCH (08:32)
[2020-02-05] MEDS: AMLODIPINE 5MG TABLET PO SCH ×2 (08:33→17:34)
[2020-02-05] MEDS: LEVETIRACETAM 500MG PREMIX 100 ML IV SCH ×2 (08:33→20:34)
[2020-02-05] MEDS: METOPROLOL TARTRATE 25MG TABLET PO SCH ×2 (08:33→20:34)
[2020-02-05] MEDS: LOSARTAN POTASSIUM 100 MG TABLET PO SCH (08:36)
[2020-02-05] MEDS: PANTOPRAZOLE SODIUM 40 MG/VIAL IV SCH (08:37)
[2020-02-05] MEDS ORDERED: MORPHINE SULFATE 2 MG/ML CPJ (NOT FOR IM USE) IV PRN (13:45)
[2020-02-05 14:10] LABS: PLATELET ESTIMATE DECREAS
[2020-02-06] VITALS (95 sets, daily range): BP systolic 110–169; BP diastolic 42–108
[2020-02-06] MEDS: PIPERACILLIN/TAZOBACTAM 3.375 G in DEXT 5% WATER 100 ML IV SCH ×2 (01:25→12:14)
[2020-02-06] MEDS: PROPOFOL 10MG/ML 100ML 100 ML IV PRN ×5 (02:01→22:22)
[2020-02-06] MEDS: DEXAMETHASONE 4MG/ML 1ML VIAL IV SCH ×3 (05:26→20:51)
[2020-02-06 06:28] LABS: MEAN CORPUSCULAR HEMOGLOBIN 30.8 pg (28.0-32.0); MEAN CORPUSCULAR VOLUME 92.4 fL (80.0-94.0); MEAN PLATELET VOLUME 9.5 fl (7.4-10.4); PLATELET 129 x1000/uL (130-400); RED BLOOD CELL COUNT 4.87 mill/uL (4.7-6.1); RED CELL DISTRIBUTION WIDTH 15.3 % (11.6-14.6)
[2020-02-06 07:26] LABS: CHLORIDE 107 mEq/L (98-107)
[2020-02-06] MEDS: LOSARTAN POTASSIUM 100 MG TABLET PO SCH (09:00)
[2020-02-06] MEDS: AMLODIPINE 5MG TABLET PO SCH ×2 (09:00→17:00)
[2020-02-06] MEDS: LEVETIRACETAM 500MG PREMIX 100 ML IV SCH ×2 (09:45→20:52)
[2020-02-06] MEDS: PANTOPRAZOLE SODIUM 40 MG/VIAL IV SCH (09:45)
[2020-02-06] MEDS: DOCUSATE SODIUM SUGAR FREE 100MG/10ML UDC NG SCH (09:50)
[2020-02-06] MEDS: METOPROLOL TARTRATE 25MG TABLET PO SCH ×2 (09:50→21:54)
[2020-02-06 15:28] LABS: BG CARBOXYHEMOGLOBIN 0.6 % (0.5-1.5); BG DEOXYHEMOGLOBIN 2.5 % (0.0-5.0); BG FRACTION INSPIRED OXYGEN 40; BG HCO3 ACT 26.6 mmol/L (22.0-26.0); BG METHEMOGLOBIN 0.1 % (0.0-1.5); BG OXYGEN SATURATION 97.5 % (92.0-98.5); BG OXYHEMOGLOBIN 96.8 % (94.0-97.0); BG PCO2 37.6 mmHg (35.0-45.0); BG PH 7.467 (7.350-7.450); BG PO2 95.4 mmHg (75.0-100.0); BG SAMPLE SITE RIGHT RADIAL; BG TIDAL VOLUME(mL) 450 mL; BG TOTAL HEMOGLOBIN 15.9 g/dL (12.0-18.0); BG VENT MODE VENT - A/C; BG VENT RATE 18 set
[2020-02-06 16:27] LABS: PLATELET ESTIMATE DECREASED
[2020-02-07] VITALS (87 sets, daily range): BP systolic 83–143; BP diastolic 49–95
[2020-02-07] MEDS: PROPOFOL 10MG/ML 100ML 100 ML IV PRN ×8 (01:26→23:18)
[2020-02-07] MEDS: LOSARTAN POTASSIUM 100 MG TABLET PO SCH (09:00)
[2020-02-07] MEDS: AMLODIPINE 5MG TABLET PO SCH ×2 (09:00→17:00)
[2020-02-07] MEDS: DOCUSATE SODIUM SUGAR FREE 100MG/10ML UDC NG SCH (09:00)
[2020-02-07] MEDS: PANTOPRAZOLE SODIUM 40 MG/VIAL IV SCH (10:00)
[2020-02-07] MEDS: DEXAMETHASONE 4MG/ML 1ML VIAL IV SCH ×2 (10:00→21:45)
[2020-02-07] MEDS: LEVETIRACETAM 500MG PREMIX 100 ML IV SCH ×2 (10:01→20:51)
[2020-02-07] MEDS: METOPROLOL TARTRATE 25MG TABLET PO SCH ×2 (10:01→21:45)
[2020-02-08] VITALS (92 sets, daily range): BP systolic 93–146; BP diastolic 42–91
[2020-02-08] MEDS: PROPOFOL 10MG/ML 100ML 100 ML IV PRN ×6 (02:45→22:05)
[2020-02-08] MEDS: DOCUSATE SODIUM SUGAR FREE 100MG/10ML UDC NG SCH (08:51)
[2020-02-08] MEDS: LEVETIRACETAM 500MG PREMIX 100 ML IV SCH ×2 (08:51→20:47)
[2020-02-08] MEDS: LOSARTAN POTASSIUM 100 MG TABLET PO SCH (08:52)
[2020-02-08] MEDS: PANTOPRAZOLE SODIUM 40 MG/VIAL IV SCH (08:52)
[2020-02-08] MEDS: AMLODIPINE 5MG TABLET PO SCH ×2 (08:52→17:31)
[2020-02-08] MEDS: METOPROLOL TARTRATE 25MG TABLET PO SCH ×2 (08:52→20:48)
[2020-02-08] MEDS: DEXAMETHASONE 4MG/ML 1ML VIAL IV SCH (09:28)
[2020-02-08] MEDS ORDERED: LORAZEPAM 2MG/ML CPJ IV PRN (13:00)
[2020-02-09] VITALS (96 sets, daily range): BP systolic 83–160; BP diastolic 34–103
[2020-02-09] MEDS: PROPOFOL 10MG/ML 100ML 100 ML IV PRN ×5 (03:38→22:33)
[2020-02-09 06:13] LABS: HEMATOCRIT 46.5 % (42.0-52.0); HEMOGLOBIN 15.6 g/dL (14.0-18.0); MEAN CORPUSCULAR HEMOGLOBIN 30.9 pg (28.0-32.0); MEAN CORPUSCULAR VOLUME 92.4 fL (80.0-94.0); PLATELET 158 x1000/uL (130-400); RED BLOOD CELL COUNT 5.03 mill/uL (4.7-6.1); RED CELL DISTRIBUTION WIDTH 15.3 % (11.6-14.6)
[2020-02-09 06:52] LABS: CHLORIDE 110 mEq/L (98-107)
[2020-02-09] MEDS: PANTOPRAZOLE SODIUM 40 MG/VIAL IV SCH (09:45)
[2020-02-09] MEDS: LOSARTAN POTASSIUM 100 MG TABLET PO SCH (09:46)
[2020-02-09] MEDS: AMLODIPINE 5MG TABLET PO SCH ×2 (09:46→17:14)
[2020-02-09] MEDS: METOPROLOL TARTRATE 25MG TABLET PO SCH ×2 (09:46→20:54)
[2020-02-09] MEDS: DOCUSATE SODIUM SUGAR FREE 100MG/10ML UDC NG SCH (09:46)
[2020-02-09] MEDS: LEVETIRACETAM 500MG PREMIX 100 ML IV SCH ×2 (09:47→20:56)
[2020-02-09] MEDS: PIPERACILLIN SODIUM/TAZOBACTAM 4.5 G in DEXT 5% WATER 100 ML IV SCH ×2 (17:14→20:55)
[2020-02-09] MEDS: VANCOMYCIN 1500MG in DEXTROSE 5% WATER 250ML IV SCH (18:25)
[2020-02-09] MEDS ORDERED: VANCOMYCIN 1,500 MG in DEXT 5% WATER 250 ML IV SCH (20:00)
[2020-02-09] MEDS ORDERED: PIPERACILLIN/TAZOBACTAM 3.375 G/VIAL IV SCH (22:00)
[2020-02-10] VITALS (44 sets, daily range): BP systolic 105–144; BP diastolic 56–95
[2020-02-10] MEDS: PIPERACILLIN SODIUM/TAZOBACTAM 4.5 G in DEXT 5% WATER 100 ML IV SCH ×4 (03:28→21:50)
[2020-02-10] MEDS: PROPOFOL 10MG/ML 100ML 100 ML IV PRN ×5 (03:35→21:21)
[2020-02-10] MEDS: VANCOMYCIN 1500MG in DEXTROSE 5% WATER 250ML IV SCH ×2 (05:30→18:48)
[2020-02-10] MEDS: PANTOPRAZOLE SODIUM 40 MG/VIAL IV SCH (09:21)
[2020-02-10] MEDS: DOCUSATE SODIUM SUGAR FREE 100MG/10ML UDC NG SCH (09:21)
[2020-02-10] MEDS: LEVETIRACETAM 500MG PREMIX 100 ML IV SCH ×2 (09:21→20:40)
[2020-02-10] MEDS: METOPROLOL TARTRATE 25MG TABLET PO SCH ×2 (09:22→20:40)
[2020-02-10] MEDS: AMLODIPINE 5MG TABLET PO SCH ×2 (09:22→17:49)
[2020-02-10] MEDS: LOSARTAN POTASSIUM 100 MG TABLET PO SCH (09:22)
[2020-02-10] MEDS ORDERED: PROPOFOL 10MG/ML 100ML 100 ML IV PRN (19:00)
[2020-02-11] VITALS (70 sets, daily range): BP systolic 71–159; BP diastolic 34–99
[2020-02-11] MEDS: PROPOFOL 10MG/ML 100ML 100 ML IV PRN ×5 (01:59→17:57)
[2020-02-11 04:14] LABS: CHLORIDE 106 mEq/L (98-107)
[2020-02-11 04:21] LABS: VANCOMYCIN TROUGH 11.9 ug/mL (5.0-10.0)
[2020-02-11] MEDS: PIPERACILLIN SODIUM/TAZOBACTAM 4.5 G in DEXT 5% WATER 100 ML IV SCH ×2 (04:34→09:27)
[2020-02-11] MEDS: VANCOMYCIN 1500MG in DEXTROSE 5% WATER 250ML IV SCH (05:52)
[2020-02-11 06:09] LABS: BASOPHILS % 0.4 % (0.0-2.0); EOSINOPHILS % 1.3 % (0.0-5.0); HEMATOCRIT. 42.7 % (42.0-52.0); HEMOGLOBIN. 14.3 g/dL (14.0-18.0); LYMPHOCYTES % 7.9 % (20.0-50.0); MEAN CORPUSCULAR HEMOGLOBIN 30.8 pg (28.0-32.0); MEAN CORPUSCULAR VOLUME 92.3 fL (80.0-94.0); MONOCYTES % 7.1 % (2.0-8.0); NEUTROPHILS % 83.3 % (40.0-76.0); PLATELET 166 x1000/uL (130-400); RED BLOOD CELL COUNT 4.63 mill/uL (4.7-6.1)
[2020-02-11] MEDS: METOPROLOL TARTRATE 25MG TABLET PO SCH ×2 (09:26→20:11)
[2020-02-11] MEDS: PANTOPRAZOLE SODIUM 40 MG/VIAL IV SCH (09:26)
[2020-02-11] MEDS: DOCUSATE SODIUM SUGAR FREE 100MG/10ML UDC NG SCH (09:27)
[2020-02-11] MEDS: LOSARTAN POTASSIUM 100 MG TABLET PO SCH (09:27)
[2020-02-11] MEDS: LEVETIRACETAM 500MG PREMIX 100 ML IV SCH ×2 (09:27→20:11)
[2020-02-11] MEDS: AMLODIPINE 5MG TABLET PO SCH ×2 (09:28→17:00)
[2020-02-11] MEDS: VANCOMYCIN 1 G PREMIX 200 ML IV SCH ×2 (14:00→21:48)
[2020-02-11] MEDS ORDERED: MORPHINE (DRIP)100 MG in DEXT 5% WATER 100ML IV PRN (14:45)
[2020-02-11] MEDS: CEFAZOLIN 2,000 MG in DEXT 5% WATER 100 ML IV SCH ×2 (18:00→23:00)
[2020-02-11] MEDS: MORPHINE SULFATE 250 MG in DEXT 5% WATER 225 ML IV PRN ×2 (19:04→23:16)
[2020-02-11] MEDS ORDERED: MORPHINE SULFATE 250 MG in DEXT 5% WATER 240 ML IV PRN (21:00)
[2020-02-12] VITALS (12 sets, daily range): BP systolic 67–123; BP diastolic 41–77
[2020-02-12] MEDS: CEFAZOLIN 2,000 MG in DEXT 5% WATER 100 ML IV SCH ×3 (06:00→21:34)
[2020-02-12] MEDS: VANCOMYCIN 1 G PREMIX 200 ML IV SCH ×2 (06:00→14:00)
[2020-02-12] MEDS: MORPHINE SULFATE 250 MG in DEXT 5% WATER 225 ML IV PRN ×4 (06:12→23:23)
[2020-02-12] MEDS: METOPROLOL TARTRATE 25MG TABLET PO SCH ×2 (09:00→21:00)
[2020-02-12] MEDS: LEVETIRACETAM 500MG PREMIX 100 ML IV SCH ×2 (09:00→21:00)
[2020-02-12] MEDS: DOCUSATE SODIUM SUGAR FREE 100MG/10ML UDC NG SCH (09:00)
[2020-02-12] MEDS: PANTOPRAZOLE SODIUM 40 MG/VIAL IV SCH (09:00)
[2020-02-12] MEDS: LOSARTAN POTASSIUM 100 MG TABLET PO SCH (09:00)
[2020-02-12] MEDS: AMLODIPINE 5MG TABLET PO SCH ×2 (09:00→16:02)
[2020-02-12] MEDS: VANCOMYCIN 1,000 MG in DEXT 5% WATER 250 ML IV SCH (21:35)
[2020-02-13] VITALS (11 sets, daily range): BP systolic 79–127; BP diastolic 36–65
[2020-02-13] MEDS: CEFAZOLIN 2,000 MG in DEXT 5% WATER 100 ML IV SCH (05:45)
[2020-02-13] MEDS: MORPHINE SULFATE 250 MG in DEXT 5% WATER 225 ML IV PRN ×2 (05:45→12:44)
[2020-02-13] MEDS: VANCOMYCIN 1,000 MG in DEXT 5% WATER 250 ML IV SCH (05:45)
[2020-02-13 15:40] LABS: HEMATOCRIT. 40.6 % (42.0-52.0); HEMOGLOBIN. 13.6 g/dL (14.0-18.0); MEAN CORPUSCULAR HEMOGLOBIN 31.3 pg (28.0-32.0); MEAN CORPUSCULAR VOLUME 93.3 fL (80.0-94.0); MEAN PLATELET VOLUME 9.4 fl (7.4-10.4); PLATELET 179 x1000/uL (130-400); RED BLOOD CELL COUNT 4.36 mill/uL (4.7-6.1); RED CELL DISTRIBUTION WIDTH 15.4 % (11.6-14.6)
[2020-02-13 16:12] LABS: PLATELET ESTIMATE NORMAL
[2020-02-13 20:35] LABS: CHLORIDE 99 mEq/L (98-107)
[2020-02-13] MEDS ORDERED: DEXTROSE 50% WATER 50ML SYRINGE IV PRN (22:45)
[2020-02-13] MEDS ORDERED: DEXTROSE 50% WATER 50ML SYRINGE IV SCH (22:45)
[2020-02-13] MEDS ORDERED: SODIUM BICARBONATE 8.4% 1 MEQ/ML 50ML SYR IV SCH (22:45)
[2020-02-13] MEDS: BLOOD SUGAR DIAGNOSTIC STRIP TEST SCH (23:00)
[2020-02-14] VITALS (11 sets, daily range): BP systolic 101–132; BP diastolic 34–96
[2020-02-14] MEDS ORDERED: INSULIN REGULAR (HUMULIN R) UD 100 UNITS/ML SYR SUBCUT SCH (01:00)
[2020-02-14] MEDS: BLOOD SUGAR DIAGNOSTIC STRIP TEST SCH ×3 (01:54→02:00)
[2020-02-14] MEDS: MORPHINE SULFATE 250 MG in DEXT 5% WATER 225 ML IV PRN ×4 (09:54→23:28)
[2020-02-14] MEDS ORDERED: VANCOMYCIN 1 G PREMIX 200 ML IV SCH (14:00)
[2020-02-15] VITALS: BP 144/98
[2020-02-15] MEDS: MORPHINE SULFATE 250 MG in DEXT 5% WATER 225 ML IV PRN (03:29)
[2020-02-15 04:00] VITALS: BP 140/81
== END 2020-02-15 05:35 | disposition expired | DRG 21 ==
LOC: ER 11:49 → EDBEDREQTM 12:24 → EDBEDREQSVC 12:24 → EDBEDREQ 12:24 → ORIP 12:47 → EDBEDREQ 13:11 → EDBEDREQTM 13:11 → 5EST 15:55
PROVIDERS: ADMIT Internal Medicine; ATTEND Internal Medicine
PROC: 009430Z Drainage of Intracranial Subdural Space with Drainage Device, Percutaneous Approach (ICD-10-PCS; principal; 2020-01-30)
PROC: 0BH17EZ Insertion of Endotracheal Airway into Trachea, Via Natural or Artificial Opening (ICD-10-PCS; 2020-01-30)
PROC: 4A103BD Monitoring of Intracranial Pressure, Percutaneous Approach (ICD-10-PCS; 2020-01-30)
PROC: 00N00ZZ Release Brain, Open Approach (ICD-10-PCS; 2020-01-30)
PROC: 5A1955Z Respiratory Ventilation, Greater than 96 Consecutive Hours (ICD-10-PCS; 2020-01-30)
PROC: 0NS00ZZ Reposition Skull, Open Approach (ICD-10-PCS; 2020-01-30)
PROC: 02HV33Z Insertion of Infusion Device into Superior Vena Cava, Percutaneous Approach (ICD-10-PCS; 2020-02-01)
PROC: B548ZZA Ultrasonography of Superior Vena Cava, Guidance (ICD-10-PCS; 2020-02-01)
PROC: 4A00X4Z Measurement of Central Nervous Electrical Activity, External Approach (ICD-10-PCS; 2020-02-09)
DX: I63.312 Cerebral infarction due to thrombosis of left middle cerebral artery (principal); I21.4 Non-ST elevation (NSTEMI) myocardial infarction; J96.01 Acute respiratory failure with hypoxia; J69.0 Pneumonitis due to inhalation of food and vomit; G93.6 Cerebral edema; A41.9 Sepsis, unspecified organism; G93.40 Encephalopathy, unspecified; J44.9 Chronic obstructive pulmonary disease, unspecified; E86.0 Dehydration; I48.0 Paroxysmal atrial fibrillation; Z66 Do not resuscitate; Z20.828 Contact with and (suspected) exposure to other viral communicable diseases; G81.91 Hemiplegia, unspecified affecting right dominant side; I11.0 Hypertensive heart disease with heart failure; I50.9 Heart failure, unspecified; G93.2 Benign intracranial hypertension; T38.0X5A Adverse effect of glucocorticoids and synthetic analogues, initial encounter; M10.9 Gout, unspecified; B96.89 Other specified bacterial agents as the cause of diseases classified elsewhere; F12.90 Cannabis use, unspecified, uncomplicated; M62.82 Rhabdomyolysis; R32 Unspecified urinary incontinence; Z51.5 Encounter for palliative care; R47.01 Aphasia; Z82.3 Family history of stroke; Z87.891 Personal history of nicotine dependence; Z90.49 Acquired absence of other specified parts of digestive tract; Z79.82 Long term (current) use of aspirin; Z79.899 Other long term (current) drug therapy; Z79.01 Long term (current) use of anticoagulants; Y92.89 Other specified places as the place of occurrence of the external cause
CPT/HCPCS: 36415; 36600; 70496; 70498; 71045; 76937; 80048; 80053; 80202; 80305; 80320; 81003; 82140; 82375; 82550; 82805; 82962; 83036; 83721; 83880; 84145; 84478; 84484; 85025; 85027; 86850; 86900; 87070; 87077; 87186; 87635; 93005; 93970; 94002; 99291; C1725; C9113; J0690; J1100; J1815; J1953; J2060; J2150; J2250; J2270; J2274; J2543; J2704; J3010; J3370; J3490; J7030; J7050; J7060; Q9967; G0480